=== PATIENT | female | born 1975 | race Caucasian/White ===

== ENCOUNTER 2016-07-18 13:08 | Outpatient (CLI) | payer BC | END 2016-07-18 13:09 | disposition home or self-care (01) | DX: E10.9 Type 1 diabetes mellitus without complications (principal) ==

== ENCOUNTER 2016-09-07 12:42 | Outpatient (CLI) | payer BC ==
[2016-09-07 19:42] LABS: THYROID STIMULATING HORMONE 0.12 uIU/mL (0.34-5.60)
== END 2016-09-07 12:43 | disposition home or self-care (01) ==
LOC: LAB.F 12:42
PROVIDERS: ATTEND Nurse Practitioner Family
DX: E03.9 Hypothyroidism, unspecified (principal); E23.0 Hypopituitarism
CPT/HCPCS: 36415; 84439; 84443

== ENCOUNTER 2016-12-02 10:01 | Outpatient (CLI) | payer BC | END 2016-12-02 10:02 | disposition home or self-care (01) | LOC: LAB.F 10:01 | PROVIDERS: ATTEND Family Medicine | DX: E03.9 Hypothyroidism, unspecified (principal) | CPT/HCPCS: 36415; 84443 ==

== ENCOUNTER 2017-03-03 15:06 | Outpatient (CLI) | payer BC ==
[2017-03-03 18:54] LABS: BUN - BLOOD UREA NITROGEN 17 mg/dL (6-20); CARBON DIOXIDE - CO2 25 mmol/L (21-32); CHLORIDE 103 mmol/L (101-111); CHOL/HDL RATIO 2.7 (<4.4); CHOLESTEROL 205 mg/dL; CREATININE 0.9 mg/dL (0.4-1.0); GFR - MDRD 69 (>89); GLUCOSE 204 mg/dL (70-100); HDL CHOLESTEROL 75 mg/dL; LDL/HDL RATIO 1.4 (<4.4); POTASSIUM 3.4 mmol/L (3.5-5.0); SODIUM 137 mmol/L (135-145); TRIGLYCERIDES 131 mg/dL; VLDL CHOLESTEROL 26 mg/dL
[2017-03-03 19:29] LABS: HEMOGLOBIN A1C 1.29 g/dL
== END 2017-03-03 15:07 | disposition home or self-care (01) ==
LOC: LAB.F 15:06
PROVIDERS: ATTEND Nurse Practitioner Family
DX: E10.9 Type 1 diabetes mellitus without complications (principal); Z13.220 Encounter for screening for lipoid disorders
CPT/HCPCS: 36415; 80048; 80061; 82043; 83036

== ENCOUNTER 2017-04-28 11:58 | Outpatient (CLI) | payer OTHER ==
--- NOTE | 2017-05-01 16:58 | Mammography Report ---
DATE OF SERVICE: 04/28/2017 DIGITAL SCREENING MAMMOGRAM: 04/28/2017 CLINICAL INDICATION: A 42-year-old, for baseline. TECHNIQUE: Routine CC and MLO projections were obtained of the breasts. Bilateral laterally exaggerated craniocaudal views. FINDINGS: The breasts demonstrate extremely dense parenchyma bilaterally, limiting the sensitivity of mammography. Coarse, typically benign calcifications are present. No suspicious masses, clustered microcalcifications, or regions of architectural distortion are identified. IMPRESSION: BENIGN FINDINGS. RECOMMENDATION: ROUTINE ANNUAL SCREENING UNLESS OTHERWISE CLINICALLY INDICATED. BIRADS CATEGORY 2-BENIGN FINDINGS. STANDARD QUALIFYING STATEMENTS: 1. This examination was reviewed with the aid of Computer-Aided Detection (CAD). 2. A negative or benign imaging report should not delay biopsy if clinically suspicious findings are present. Consider surgical consultation if warranted. More than 5% of cancers are not identified by imaging. 3. Dense breasts may obscure an underlying neoplasm. TD: 05/01/2017 17:57
== END 2017-04-28 11:59 | disposition home or self-care (01) ==
LOC: DI.S 11:58
PROVIDERS: ATTEND Nurse Practitioner Family
DX: Z12.31 Encounter for screening mammogram for malignant neoplasm of breast (principal)
CPT/HCPCS: 77067

== ENCOUNTER 2017-05-30 12:40 | Outpatient (CLI) | payer OTHER | END 2017-05-30 12:41 | disposition home or self-care (01) | LOC: LAB.R 12:40 | PROVIDERS: ATTEND Nurse Practitioner Family | DX: F90.2 Attention-deficit hyperactivity disorder, combined type (principal) | CPT/HCPCS: 80307; 80354; 80362; 81599 ==

== ENCOUNTER 2018-07-25 09:37 | Outpatient (CLI) | payer MEDICAID ==
--- NOTE | 2018-07-25 11:31 | Mammography Report ---
Reason: BREAST LUMPS,BILAT Procedure Date: 07/25/2018 Accession Number: [id number] / [id number] Procedure: KAVYA - Diagnostic Dig Bilat CPT Code: FULL RESULT: EXAM: Diagnostic Dig Bilat DATE: 07/25/2018 10:23 AM CLINICAL HISTORY: Diagnostic examination. Bilateral palpable breast lumps for little over a year, waxing and waning. TECHNIQUE: (B) - Bilateral CC, laterally exaggerated CC, MLO views were obtained. Bilateral ML views are obtained. COMPARISON: 04/28/2017. PARENCHYMAL PATTERN: (VD) - The breast(s) demonstrate(s) extremely dense parenchyma, limiting the sensitivity of mammography. FINDINGS: Bilateral focused breast ultrasound of the palpable regions is performed, no suspicious masses identified. There are no suspicious masses, calcifications, or areas of distortion by 2-D mammography. IMPRESSION: Negative examination. BI-RADS category 1. RECOMMENDATION: (ANNUAL) - Recommend routine annual screening mammography. BI-RADS CATEGORY: (1) - Negative. STANDARD QUALIFYING STATEMENTS: 1. This examination was not reviewed with the aid of Computer-Aided Detection (CAD). 2. A negative or benign imaging report should not preclude biopsy if clinically suspicious findings are present. 3. Dense breasts may obscure an underlying neoplasm. 4. This examination was reviewed without the aid of 3D breast imaging (tomosynthesis).
== END 2018-07-25 09:38 | disposition home or self-care (01) ==
LOC: DI 09:37
PROVIDERS: ATTEND Nurse Practitioner Family
DX: N63.20 Unspecified lump in the left breast, unspecified quadrant (principal); N63.21 Unspecified lump in the left breast, upper outer quadrant
CPT/HCPCS: 76642; 77066

== ENCOUNTER 2018-07-27 07:52 | Outpatient (CLI) | payer MEDICAID ==
[2018-07-27 11:11] LABS: BASOPHILS % (AUTO) 0.5 %; EOSINOPHILS # (AUTO) 0.3 10^3/uL (0.0-0.7); EOSINOPHILS % (AUTO) 4.2 %; HGB - HEMOGLOBIN 11.9 g/dL (12.0-16.0); LYMPHOCYTES # (AUTO) 1.6 10^3/uL (1.5-3.5); LYMPHOCYTES % (AUTO) 26.9 %; MEAN CORPUSCULAR HEMOGLOBIN 24.8 pg (27.0-31.0); MEAN CORPUSCULAR HGB CONC 32.3 g/dL (32.0-36.0); MEAN CORPUSCULAR VOLUME 76.9 fL (81.0-99.0); MEAN PLATELET VOLUME 7.1 fL (7.9-10.8); MONOCYTES # (AUTO) 0.7 10^3/uL (0.0-1.0); MONOCYTES % (AUTO) 11.4 %; NEUTROPHILS # (AUTO) 3.4 10^3/uL (1.5-6.6); PLT - PLATELET COUNT 410 10^3/uL (130-450); RED BLOOD COUNT 4.81 10^6/uL (4.20-5.40); RED CELL DISTRIBUTION WIDTH 15.9 % (12.0-15.0)
[2018-07-27 11:42] LABS: CREATININE,URINE 148.7 mg/dL; MICROALBUM/CREATININE RATIO,UR 14.8 ug/mg (<30.0); MICROALBUMIN,URINE 2.2 mg/dL (0-300.0)
[2018-07-27 11:43] LABS: ALBUMIN/GLOBULIN RATIO 1.3 (1.0-2.2); ALKALINE PHOSPHATASE 56 IU/L (42-121); ALT ALANINE AMINOTRANSFERASE 20 IU/L (10-60); AST ASPARTATE AMINOTRANSFERASE 17 IU/L (10-42); BILIRUBIN,TOTAL 0.5 mg/dL (0.2-1.0); BUN - BLOOD UREA NITROGEN 15 mg/dL (6-20); CALCIUM 9.1 mg/dL (8.5-10.3); CARBON DIOXIDE - CO2 26 mmol/L (21-32); CHLORIDE 105 mmol/L (101-111); CHOL/HDL RATIO 3.3 (<4.4); CHOLESTEROL 220 mg/dL; CREATININE 0.7 mg/dL (0.4-1.0); GFR - MDRD 92 (>89); GLUCOSE 184 mg/dL (70-100); HDL CHOLESTEROL 66 mg/dL; LDL CHOLESTEROL,CALCULATED 137 mg/dL; LDL/HDL RATIO 2.1 (<4.4); SODIUM 139 mmol/L (135-145); TOTAL PROTEIN 7.1 g/dL (6.7-8.2); VLDL CHOLESTEROL 17 mg/dL
[2018-07-27 12:04] LABS: HEMOGLOBIN A1C 1.27 g/dL; HEMOGLOBIN A1C % 11.1 % (4.6-6.2)
== END 2018-07-27 07:53 | disposition home or self-care (01) ==
LOC: LAB.F 07:52
PROVIDERS: ATTEND Nurse Practitioner Family
DX: E10.9 Type 1 diabetes mellitus without complications (principal); E03.9 Hypothyroidism, unspecified; Z13.220 Encounter for screening for lipoid disorders
CPT/HCPCS: 36415; 80053; 80061; 82043; 82570; 83036; 83721; 84443; 85025

== ENCOUNTER 2018-11-26 17:05 | Emergency (ER) | payer MEDICAID ==
--- NOTE | 2018-11-26 17:41 | ED Physician Documentation ---
History of Present Illness - Stated complaint Stated Complaint: BUMP ON REAR - Chief complaint Chief Complaint: General - History obtained from History obtained from: Patient, Family - History of Present Illness Timing: How many weeks ago (several) Pain level max: 3 Pain level now: 2 - Additonal information Additional information: 43-year-old female presents to the emergency department stating that she had a rectal fistula several years ago that was surgically repaired. For the past several weeks has had drainage from the same area. No fevers. Increasing pain today. Nothing makes it better or worse. Review of Systems Constitutional: denies: Fever, Chills GI: denies: Vomiting, Diarrhea Skin: denies: Rash Musculoskeletal: denies: Neck pain, Back pain Neurologic: denies: Headache PD PAST MEDICAL HISTORY - Past Medical History Past Medical History: Yes Cardiovascular: None Respiratory: None Neuro: None Endocrine/Autoimmune: Type 1 diabetes, HyPOthyroidism GI: None MOTHER REPAIRER: None : None HEENT: None Psych: Other Musculoskeletal: None Derm: None Other Past Medical History: mood disorder - Past Surgical History Past Surgical History: Yes /MOTHER REPAIRER: section, Tubal ligation - Present Medications Home Medications: Ambulatory Orders Medication Instructions Recorded Confirmed Biotin 1 mg PO 10/24/12 10/24/12 Insulin Aspart [NovoLOG] 10 - 12 units TIDWM 10/24/12 10/24/12 Lactobacillus Rhamnosus GG 1 each PO DAILY 10/24/12 10/24/12 [Probiotic] Levothyroxine Sodium [Synthroid] 175 mcg PO QAM 10/24/12 10/24/12 Insulin Glargine,Hum.rec.anlog 21 unit SQ DAILY 06/14/13 06/14/13 [Lantus Solostar] Clindamycin HCl [Clindamycin 300MG 300 mg PO Q6H #40 capsule 11/26/18 CAP] - Allergies Allergies/Adverse Reactions: Allergies Allergy/AdvReac Type Severity Reaction Status Date / Time hydromorphone HCl * Allergy Severe throat Verified 11/26/18 17:11 [From Dilaudid] swelling meperidine HCl * Allergy Severe seizure Verified 11/26/18 17:11 [From Demerol] morphine Allergy Intermediate Itching Verified 11/26/18 17:11 Sulfa (Sulfonamide Allergy Intermediate Rash Verified 11/26/18 17:11 Antibiotics) oxycodone Allergy Edema Verified 11/26/18 17:11 insulin lispro [From Humalog] AdvReac Severe migraines Verified 11/26/18 17:11 - Social History Does the pt smoke?: No Smoking Status: Never smoker Does the pt drink ETOH?: No Does the pt have substance abuse?: No - Immunizations Immunizations are current?: Yes - POLST Patient has POLST: No PD ED PE NORMAL - Vitals Vital signs reviewed: Yes - General General: Alert and oriented X 3, No acute distress, Well developed/nourished - HEENT HEENT: Moist mucous membranes - Neck Neck: Supple, no meningeal sign - Cardiac Cardiac: RRR, Strong equal pulses - Respiratory Respiratory: No respiratory distress, Clear bilaterally - Rectal Rectal: Other (R perianal fistula. purulent drainage. No abscess. ) - Derm Derm: Warm and dry - Extremities Extremities: No edema - Neuro Neuro: Alert and oriented X 3 - Psych Psych: Normal mood, Normal affect Results - Vitals Vitals: Oxygen O2 Source Room air - Labs Labs: Microbiology 11/26/18 17:30 Wound Culture - Preliminary Abscess PD MEDICAL DECISION MAKING - ED course Complexity details: considered differential, d/w patient, d/w family ED course: 43-year-old female with a perianal fistula. Will place on antibiotics for this. She is well-appearing, nontoxic. Afebrile. No abscess. Patient counseled regarding signs and symptoms for which I believe and urgent re-evaluation would be necessary. Patient with good understanding of and agreement to plan and is comfortable going home at this time This document was made in part using voice recognition software. While efforts are made to proofread this document, sound alike and grammatical errors may occur. We will have her follow-up with surgery for further evaluation Departure - Departure Disposition: Home, Self Care Clinical Impression: Rectal fistula Condition: Good Instructions: ED Fistula Nina Anal Follow-Up: Paulie Raymundo MD [Provider Admit Priv/Credential] - Lolis Soto MD [Provider Admit Priv/Credential] - Aidan Quinn MD [Provider Admit Priv/Credential] - Prescriptions: Clindamycin HCl [Clindamycin 300MG CAP] 300 mg PO Q6H #40 capsule Comments: Take all antibiotics until gone. Return if you worsen. Follow-up with surgery for further evaluation and care of your fistula. Discharge Date/Time: 11/26/18 18:00
[2018-11-26 18:00] VITALS: BP 146/76
== END 2018-11-26 18:00 | disposition home or self-care (01) ==
LOC: ED 17:05
DX: K60.4 Rectal fistula (principal); E10.9 Type 1 diabetes mellitus without complications
CPT/HCPCS: 87070; 87205; 99283; 99284

== ENCOUNTER 2019-10-24 16:14 | Outpatient (CLI) | payer MEDICAID ==
[2019-10-24 20:10] LABS: HB2 TOTAL 11.1 g/dL; HEMOGLOBIN A1C 0.61 g/dL; HEMOGLOBIN A1C % 7.2 % (4.6-6.2)
== END 2019-10-24 16:15 | disposition home or self-care (01) ==
LOC: LAB.S 16:14
PROVIDERS: ATTEND Registered Nurse
DX: E10.9 Type 1 diabetes mellitus without complications (principal); E03.9 Hypothyroidism, unspecified; F39 Unspecified mood [affective] disorder; R71.8 Other abnormality of red blood cells; F90.2 Attention-deficit hyperactivity disorder, combined type
CPT/HCPCS: 36415; 81599; 83036; 84443

== ENCOUNTER 2020-02-24 08:27 | Outpatient (CLI) | payer MEDICAID ==
[2020-02-24 15:48] LABS: CHOLESTEROL 206 mg/dL; HDL CHOLESTEROL 69 mg/dL; LDL CHOLESTEROL,CALCULATED 123 mg/dL; LDL/HDL RATIO 1.8 (<4.4); VLDL CHOLESTEROL 14 mg/dL
[2020-02-24 16:01] LABS: MICROALBUMIN,URINE < 0.2 mg/dL (0-300.0)
[2020-02-24 22:03] LABS: HEMOGLOBIN A1c% 7.2 % (4.27-6.07)
== END 2020-02-24 08:28 | disposition home or self-care (01) ==
LOC: LAB.S 08:27
PROVIDERS: ATTEND Nurse Practitioner Family
DX: E10.9 Type 1 diabetes mellitus without complications (principal)
CPT/HCPCS: 36415; 80061; 82043; 82570; 83036; 83721

== ENCOUNTER 2020-06-19 08:55 | Outpatient (CLI) | payer MEDICAID ==
[2020-06-19 16:09] LABS: THYROID STIMULATING HORMONE 3.78 uIU/mL (0.34-5.60)
[2020-06-19 20:01] LABS: ESTIMATED AVERAGE GLUCOSE 183 mg/dL (70-100)
== END 2020-06-19 08:56 | disposition home or self-care (01) ==
LOC: LAB.S 08:55
PROVIDERS: ATTEND Nurse Practitioner Family
DX: E03.9 Hypothyroidism, unspecified (principal); E10.9 Type 1 diabetes mellitus without complications
CPT/HCPCS: 36415; 83036; 84443

== ENCOUNTER 2020-07-27 10:28 | Outpatient (CLI) | payer MEDICAID | END 2020-07-27 23:59 | disposition home or self-care (01) | LOC: LAB.S 10:28 | PROVIDERS: ATTEND Physician Assistant | DX: K52.9 Noninfective gastroenteritis and colitis, unspecified (principal) | CPT/HCPCS: 36415; 83516 ==

== ENCOUNTER 2020-11-23 09:48 | Outpatient (CLI) | payer MEDICAID ==
[2020-11-23 10:25] LABS: CHOL/HDL RATIO 2.9 (<4.4); CHOLESTEROL 236 mg/dL; HDL CHOLESTEROL 82 mg/dL; LDL CHOLESTEROL,CALCULATED 144 mg/dL; LDL/HDL RATIO 1.8 (<4.4); TRIGLYCERIDES 50 mg/dL; VLDL CHOLESTEROL 10 mg/dL
[2020-11-23 10:33] LABS: ESTIMATED AVERAGE GLUCOSE 166 mg/dL (70-100); HEMOGLOBIN A1c% 7.4 % (4.27-6.07)
[2020-11-25 14:11] LABS: NIL 0.03 IU/mL
== END 2020-11-23 09:49 | disposition home or self-care (01) ==
LOC: LAB 09:48
PROVIDERS: ATTEND Registered Nurse
DX: Z00.00 Encounter for general adult medical examination without abnormal findings (principal); E10.3 Type 1 diabetes mellitus with ophthalmic complications
CPT/HCPCS: 36415; 80061; 83036; 83721; 86480

== ENCOUNTER 2020-12-23 16:48 | Outpatient (CLI) | payer MEDICAID | END 2020-12-23 16:49 | disposition home or self-care (01) | LOC: LAB.S 16:48 | PROVIDERS: ATTEND Family Medicine | DX: Z01.84 Encounter for antibody response examination (principal) | CPT/HCPCS: 86787 ==

== ENCOUNTER 2021-02-04 08:59 | Outpatient (CLI) | payer MEDICAID | END 2021-02-04 23:59 | disposition home or self-care (01) | LOC: LAB.S 08:59 | PROVIDERS: ATTEND Physician Assistant | DX: Z20.822 Contact with and (suspected) exposure to COVID-19 (principal) ==

== ENCOUNTER 2021-05-07 09:47 | Outpatient (CLI) | payer MEDICAID ==
[2021-05-07 14:37] LABS: CREATININE,URINE 203.3 mg/dL; MICROALBUM/CREATININE RATIO,UR 3.9 ug/mg (<30.0); MICROALBUMIN,URINE 0.8 mg/dL (0-300.0)
[2021-05-07 15:07] LABS: ALBUMIN 4.4 g/dL (3.2-5.5); ALBUMIN/GLOBULIN RATIO 1.5 (1.0-2.2); ALKALINE PHOSPHATASE 35 IU/L (42-121); ALT ALANINE AMINOTRANSFERASE 23 IU/L (10-60); AST ASPARTATE AMINOTRANSFERASE 16 IU/L (10-42); BILIRUBIN,TOTAL 0.7 mg/dL (0.2-1.0); BUN - BLOOD UREA NITROGEN 15 mg/dL (6-20); CALCIUM 9.1 mg/dL (8.5-10.3); CARBON DIOXIDE - CO2 26 mmol/L (21-32); CHLORIDE 104 mmol/L (101-111); CHOL/HDL RATIO 2.1 (<4.4); CHOLESTEROL 166 mg/dL; CREATININE 0.9 mg/dL (0.4-1.0); GFR - MDRD 68 (>89); GLUCOSE 118 mg/dL (70-100); HDL CHOLESTEROL 80 mg/dL; LDL CHOLESTEROL,CALCULATED 77 mg/dL; POTASSIUM 3.9 mmol/L (3.5-5.0); SODIUM 138 mmol/L (135-145); TOTAL PROTEIN 7.3 g/dL (6.7-8.2); TRIGLYCERIDES 44 mg/dL; VLDL CHOLESTEROL 9 mg/dL
[2021-05-07 15:44] LABS: THYROID STIMULATING HORMONE 21.45 uIU/mL (0.34-5.60)
[2021-05-07 16:26] LABS: FREE T4 (FREE THYROXINE) 0.95 ng/dL (0.58-1.64)
[2021-05-07 21:21] LABS: ESTIMATED AVERAGE GLUCOSE 174 mg/dL (70-100); HEMOGLOBIN A1c% 7.7 % (4.27-6.07)
== END 2021-05-07 09:48 | disposition home or self-care (01) ==
LOC: MERGE 09:47 → LAB.S 09:47
PROVIDERS: ATTEND Nurse Practitioner Family
DX: E10.3 Type 1 diabetes mellitus with ophthalmic complications (principal)
CPT/HCPCS: 36415; 80053; 80061; 82043; 82570; 83036; 83721; 84439; 84443

== ENCOUNTER 2021-05-31 13:01 | Outpatient (CLI) | payer MEDICAID ==
--- NOTE | 2021-06-01 11:45 | Mammography Report ---
BILATERAL DIGITAL SCREENING MAMMOGRAM 3D/2D WITH EXAGGERATED CC: 05/31/2021 CLINICAL: Routine screening. Family history of breast cancer. Comparison is made to exams dated: 07/25/2018 mammogram and 04/28/2017 mammogram - [facility]. The tissue of both breasts is extremely dense, which lowers the sensitivity of mammograph y. No significant masses, calcifications, or other findings are seen in either breast. There has been no significant interval change. IMPRESSION: NEGATIVE There is no mammographic evidence of malignancy. A 1 year screening mammogram is recommended. This exam was interpreted at Station ID: [id number]. NOTE: For mammograms, a report in lay terms will be sent to the patient. Approximately 15% of breast malignancies will not be visualized mammographically. In the management of a palpable breast mass, a negative mammogram must not discourage biopsy of a clinically suspicious lesion. Electronically Signed By: Socorro [email or web address]:05/31/2021 14:20:39 ACR BI-RADS Category 1: Negative 3341F PARENCHYMAL PATTERN: (VD) - The breast(s) demonstrate(s) extremely dense parenchyma, limiting the sen sitivity of mammography. BI-RADS CATEGORY: (1) - 1 RECOMMENDATION: (ANNUAL) - Recommend routine annual screening mammography. [id number] 1 year screening LATERALITY: (B)
== END 2021-05-31 13:02 | disposition home or self-care (01) ==
LOC: DI.S 13:01
PROVIDERS: ATTEND Registered Nurse
DX: Z12.31 Encounter for screening mammogram for malignant neoplasm of breast (principal); Z80.3 Family history of malignant neoplasm of breast

== ENCOUNTER 2021-07-21 09:39 | Outpatient (CLI) | payer MEDICAID | END 2021-07-21 09:40 | disposition home or self-care (01) | LOC: LAB.S 09:39 | PROVIDERS: ATTEND Registered Nurse | DX: Z53.9 Procedure and treatment not carried out, unspecified reason (principal) ==

== ENCOUNTER 2021-07-29 08:00 | Outpatient (CLI) | payer MEDICAID | END 2021-07-29 08:01 | disposition home or self-care (01) | LOC: LAB.S 08:00 | PROVIDERS: ATTEND Physician Assistant Medical | DX: U07.1 COVID-19 (principal) | CPT/HCPCS: 87070 ==

== ENCOUNTER 2021-08-16 09:06 | Outpatient (CLI) | payer MEDICAID ==
[2021-08-16 15:37] LABS: T4 (THYROXINE) 8.45 ug/dL (6.09-12.23)
[2021-08-16 15:39] LABS: THYROID STIMULATING HORMONE 0.5 uIU/mL (0.34-5.60)
[2021-08-16 15:41] LABS: FREE T3 3.18 pg/mL (2.5-3.9); FREE T4 (FREE THYROXINE) 1.11 ng/dL (0.58-1.64)
[2021-08-16 15:45] LABS: FERRITIN 2.4 ng/mL (11.0-306.8)
[2021-08-17 19:07] LABS: THYROGLOBULIN ANTIBODY >2250.0 IU/mL (0.0-0.9)
== END 2021-08-16 09:07 | disposition home or self-care (01) ==
LOC: LAB.S 09:06
PROVIDERS: ATTEND Registered Nurse
DX: D64.9 Anemia, unspecified (principal); E03.9 Hypothyroidism, unspecified; Z79.899 Other long term (current) drug therapy
CPT/HCPCS: 36415; 80175; 82728; 83540; 84436; 84439; 84443; 84480; 84481; 86800

== ENCOUNTER 2021-08-27 08:30 | Outpatient (CLI) | payer MEDICAID ==
[2021-08-27 09:01] LABS: CREATININE 0.8 mg/dL (0.4-1.0)
[2021-08-27] MEDS ORDERED: IOPAMIDOL-300 50 ML VIAL IVP ONE (09:28)
--- NOTE | 2021-08-27 11:37 | CT Report ---
PROCEDURE: CT neck with contrast INDICATIONS: HYPOTHYROIDISM CONTRAST: IV CONTRAST: Isovue 300 ml: 100 PO CONTRAST: *NO PO CONTRAST TECHNIQUE: After the administration of intravenous contrast, 3.0 mm axial sections acquired from the sella to th e aortic arch. Additional oblique axial 3.0 mm sections acquired through the pharynx. 3 mm thick co reed reformats were generated. For radiation dose reduction, the following was used: automated exp osure control, adjustment of mA and/or kV according to patient size. COMPARISON: None. FINDINGS: Image quality: Excellent. Lymph nodes: No enlarged lymph nodes seen throughout the neck. Vessels: Visualized vasculature appears patent. Neck spaces: The oropharynx, nasopharynx, and pharynx demonstrate no mucosal lesions. The vocal cor ds, false vocal cords, pyriform sinuses, epiglottis, vallecula, and tongue base all appear normal. E xtramucosal spaces appear unremarkable. Glands: The parotid and submandibular glands appear normal. Thyroid is heterogenous and diminutive in size. Miscellaneous: Visualized brain and orbits appear normal. Lung apices appear clear. Superficial so ft tissues appear normal. Bones: No suspicious bony lesions. Visualized sinuses and mastoids appear unremarkable. IMPRESSION: 1. Atrophic heterogenous thyroid. Differential would include sequelae of chronic thyroiditis. Conside r ultrasound correlation. Reviewed by: Chas Delgado MD on 08/27/2021 10:35 AM MENA Approved by: Chas Delgado MD on 08/27/2021 10:35 AM MENA Station ID: [id number]
== END 2021-08-27 08:31 | disposition home or self-care (01) ==
LOC: DI 08:30
PROVIDERS: ATTEND Registered Nurse
DX: E03.9 Hypothyroidism, unspecified (principal); E03.4 Atrophy of thyroid (acquired); E61.1 Iron deficiency; Z86.2 Personal history of diseases of the blood and blood-forming organs and certain disorders involving the immune mechanism
CPT/HCPCS: 36415; 70491; 82565; Q9967